=== PATIENT | female | born 1945 | race Caucasian/White ===

== ENCOUNTER → 2023-11-22 12:24 | Outpatient (REF) | payer OTHER, SELFPAY | LOC: HWRAD 12:24 | PROVIDERS: ATTENDING PHYSICIAN Physician Assistant Medical | DX: M25.562 Pain in left knee (principal) | CPT/HCPCS: 73564 ==

== ENCOUNTER → 2023-12-26 09:05 | Outpatient (REF) | payer OTHER, SELFPAY | LOC: RCS 09:05 | PROVIDERS: ATTENDING PHYSICIAN Physician Assistant Medical | DX: R00.2 Palpitations (principal) | CPT/HCPCS: 93225; 93226 ==

== ENCOUNTER → 2024-01-04 14:42 | Outpatient (REF) | payer OTHER, SELFPAY | LOC: RCS 14:42 | PROVIDERS: ATTENDING PHYSICIAN Internal Medicine; FAMILY PHYSICIAN Physician Assistant Medical | DX: R94.31 Abnormal electrocardiogram [ECG] [EKG] (principal); R06.09 Other forms of dyspnea; R00.2 Palpitations; I49.3 Ventricular premature depolarization | CPT/HCPCS: 93017 ==

== ENCOUNTER → 2024-01-19 13:48 | Outpatient (REF) | payer OTHER, SELFPAY | LOC: HWRCS 13:48 | PROVIDERS: ATTENDING PHYSICIAN Internal Medicine; FAMILY PHYSICIAN Physician Assistant Medical | DX: R00.2 Palpitations (principal); I49.3 Ventricular premature depolarization; R06.09 Other forms of dyspnea; R94.31 Abnormal electrocardiogram [ECG] [EKG] | CPT/HCPCS: 93306 ==

== ENCOUNTER → 2024-01-24 10:56 | Outpatient (REF) | payer OTHER, SELFPAY | LOC: DHCBC/DCA 10:56 | PROVIDERS: ATTENDING PHYSICIAN Internal Medicine; FAMILY PHYSICIAN Physician Assistant Medical | DX: R00.2 Palpitations (principal); R06.09 Other forms of dyspnea; R94.39 Abnormal result of other cardiovascular function study; I48.0 Paroxysmal atrial fibrillation | CPT/HCPCS: 78452; 93017; A9500; J2785 ==

== ENCOUNTER 2024-02-23 05:58 | Day surgery (SDC) | payer OTHER, SELFPAY ==
[2024-02-08 13:09] VITALS: BMI 18.8
[2024-02-08 13:43] LABS: % Basophils 0.7 % (0-2); % Eosinophils 1.6 % (0-6); % Immature Granulocytes 0.1 % (0-0.5); % Lymphocytes 32.3 % (20.5-51.1); % Monocytes 6.8 % (1.7-9.3); % Neutrophils 58.5 % (42.2-75.2); Absolute Basophils 0.1 10^3/uL (0-0.2); Absolute Eosinophils 0.1 10^3/uL (0-0.7); Absolute Lymphocytes 2.2 10^3/uL (1.2-3.4); Absolute Monocytes 0.5 10^3/uL (0.1-0.6); Absolute Neutrophils 3.9 10^3/uL (1.4-6.5); Hematocrit 38.8 % (37.0-47.0); Hemoglobin 13.7 g/dL (12.0-16.0); Mean Corp Hgb Conc. 35.3 g/dL (33.0-37.0); Mean Corpuscular Hgb 31.8 pg (27.0-31.0); Mean Platelet Volume 11.3 fL (7.4-10.4); Nucleated Red Blood Cells % 0 %; Platelet Count 212 10^3/uL (130-400); Red Blood Cell Count 4.31 10^6/uL (4.20-5.40); Red Cell Dist. Width 12.7 % (11.5-14.5); White Blood Cell Count 6.7 10^3/uL (4.8-10.8)
[2024-02-08 13:58] LABS: ALT (SGPT) 19 U/L (0-35); AST (SGOT) 25 U/L (14-36); Alkaline Phosphatase 75 U/L (38-126); Blood Urea Nitrogen 23 mg/dl (7-17); Calcium 9.8 mg/dl (8.4-10.2); Carbon Dioxide 27 mmol/L (22-30); Chloride 105 mmol/L (98-107); Estimated Creatinine Clearance 52 ml/min; Glucose 141 mg/dl (70-99); Potassium 3.4 mmol/L (3.5-5.1); Sodium 139 mmol/L (135-145); Total Bilirubin 0.5 mg/dl (0.2-1.3); Total Protein 6.8 g/dl (6.3-8.2); eGFR > 60.00
[2024-02-23] VITALS (19 sets, daily range): BP systolic 100–185; BP diastolic 38–92; BMI 18.8
[2024-02-23 09:11] LABS: ACT-LR - POC 388 Seconds (116-155)
--- NOTE | 2024-02-23 09:50 | ITS.CL.ABL ---
Pathologist Assistant - Ablation
Ablation
Procedure Report:
AFIB ablation:
Ms. Guzman is a very pleasant 78 yr old woman with symptomatic paroxysmal AF presented today to the EP lab for atrial fibrillation ablation.
Date of the Procedure:
02/23/2024
Indications:
Paroxysmal atrial fibrillation
Pre-Operative Diagnosis:
Paroxysmal atrial fibrillation
Post-Operative Diagnosis:
Paroxysmal atrial fibrillation
Procedure Performed:
Atrial fibrillation ablation with Pulsed-Field approach for pulmonary vein isolation
Performing Physician:
Nara Sharpe MD
Assistants:
EP staff
Anesthesia:
See anesthesia records
Detailed Description of the Procedure:
Written informed consent was obtained from the patient after a full explanation of the risks and benefits of the procedure including the risks of sedation and anesthesia.
The patient was brought to the electrophysiology laboratory in stable condition in fasting state. Continuous electrocardiographic and hemodynamic monitoring was initiated.
The initial rhythm was sinus bradycardia.
The procedure site was meticulously prepared with surgical scrub and allowed to dry with no pooling. Sterile draping was applied to cover the procedure site. The image intensifier was draped with sterile bag and positioned over the patient. After
infusion of local anesthetic, vascular access was obtained under ultrasound guidance and sheaths were placed over guide wire as detailed below.
Sheath and Catheter Placement:
The following catheters / sheaths were placed
Sheaths:
��������� 15Fr steerable sheath (FlexCath Cross�, tribalXtronic) in right femoral vein in right femoral vein
��������� 9Fr in right femoral vein
��������� 7Fr in right femoral vein
Catheters:
��������� [place] HD Grid mapping catheter � at locations of RA, LA
��������� PulseSelect� PFA catheter
��������� ICE catheter -AcuNav - at locations of RA, SVC, and RV.
��������� Decapolar Bard catheter in RA and CS
Intracardiac ECHO:
An 8-Barbadian AcuNav intracardiac ECHO (ICE) probe was advanced through the 9-Barbadian sheath in the right femoral vein into the right atrium under fluoroscopic and ICE ultrasound image guidance and a baseline ECHO study was performed. The left atrial
size was mildly dilated. There was moderate tricuspid regurgitation. The aortic valve was grossly normal. There was normal left ventricular systolic functions. There is small pericardial effusion. All the four veins were identified and has flow
identified.
During the procedure, ICE was used for monitoring of complications, guidance of trans-septal puncture, monitor the catheter position and tracking ablation lesions. No change in the pericardial space noted throughout the procedure.
Trans-septal Puncture:
Heparin was initiated and infused to maintain appropriate ACT. A J-tipped guidewire was advanced through the 8-Barbadian sheath in the right femoral vein into the superior vena cava under fluoroscopic and ICE guidance. The 8-Barbadian sheath was exchanged
for a FlexCath Cross sheath which was advanced into the superior vena cava. An [employer] transseptal access system was utilized to perform the trans-septal puncture. The apparatus was withdrawn until it was in contact with the fossa ovalis. The
position was adjusted based on fluoroscopy and ultrasound images from ICE. Under fluoroscopic, hemodynamic and ICE ultrasound guidance, left atrium was cannulated by advancing the needle. Once atrial septum was cannulated, the needle was pulled back
and a guide wire was advanced through the needle into the left atrium. The guide wire was advanced into the left superior pulmonary vein. Both the sheath and the dilator was advanced into the left atrium. The dilator with the needle was withdrawn.
Blood was aspirated from the FlexCath cross sheath and arterial blood confirmed. The sheath was flushed. Saline injection noted into the left atrium on ICE. The mapping catheter was advanced in the Agilis sheath into the left pulmonary vein. Left
atrial pressure was measured.
3D Electroanatomic Mapping:
Using the HD Grid catheter advanced through sheath into the left atrium, an electroanatomic map (EAM) of the left atrium was created using [employer] mapping system. The map was used for localization of catheter position and tacking of ablation
lesions. The EAM of the left atrium showed 4 pulmonary veins with two left sided and two right sided veins electrically connected to the body the LA. The EAM showed no significant scar in the left atrium.
The LA was normal in size.
Following the EAM, preparation were made for ablation.
Ablation:
Ablation # 1: Pulmonary vein Isolation:
Using [employer]� pulsed field ablation system, pulmonary vein isolation was acieved. First the ablation catheter was placed in the LSPV and ostial ablation lesions were performed in a counter clock khanna approach all around the PV ostium
circumferentially. Then the catheter was placed on the antral location and multiple ablation lesions were placed circumferentially on the antrum of the vein.
In the similar fashion, the LIPV were isolated.
Then the catheter was moved to right sided veins. The phrenic nerve was paced before and after the ablation on the right sided vein pedro the anterior ablations.
The ostial and antral ablations were placed as noted above.
Post ablation Electroanatomic mapping:
Once the sinus rhythm achieved, the LA was mapped with HD grid in detail.
The posterior wall was also isolated with no signals present in the posterior wall.
EPS and Confirmation of the PVI and bidirectional block:
Following achievement of entrance block at the pulmonary veins, pacing from the HD catheter in each of the four veins at 10 milliamps for 2 milliseconds showed entrance and exit block. All PVI were rechecked at the end of the case and remained
isolated with dissociated and local capture with pacing. Entrance and exit block were demonstrated in all veins.
Procedure End
ICE study was done again that showed no epicardial accumulation. No complications noted.
Following the completion of the EP study, catheters were removed. Protamine 30 mg was given at the end of the procedure and ACT was checked repeatedly. The sheaths were removed and hemostasis achieved with manual compression after acceptable ACT is
achieved.
Left atrial Pressure:
Pre-Mean LA pressure was 12mmHg
Post mean LA pressure was 8 mmHg
Post mean RA pressure was 3 mmHg
Estimated Blood loss:
<10 cc
Specimens Removed:
None.
Implants / Devices:
None
Urine output:
None
Packs / Drains/ Tubes:
None
Instrument / Sponge Count Correct:
Yes
Complications of the Procedure:
None
Condition of Patient at Time of Transfer:
Hemodynamically stable with no neurological or vascular compromise.
Summary:
Successful atrial fibrillation ablation with Pulsed Field approach for pulmonary vein isolation
Figures from the Procedure:
Figure 1: The electroanatomic mapping (EAM) of the left atrium with bipolar voltage (purple indicates normal electrical activity with montalvo as no myocardial muscle electric activity indicating a line of block or scar.
[2024-02-23] MEDS: ANESTHETIC LOZENGE 1 LOZENGE PO (11:29)
--- NOTE | 2024-02-23 14:34 | W.PN.UPDATE ---
Update Note
Progress Note Update
Pt seen post PVI. RFV site without ht/bleeding, non tender. OOB ambulating. Post EKG SB 50s, no acute changes. Resume eliquis today and continue other meds as before. Followup at [facility] as scheduled. Home later today if groin site/tele remain stable.
[2024-02-23 15:36] LABS: ACT-LR - POC > 397 Seconds (116-155)
[2024-02-23 15:36] LABS: ACT-LR - POC > 397 Seconds (116-155)
== END 2024-02-23 14:30 | disposition home or self-care (01) ==
LOC: CATH 05:58
PROVIDERS: ATTENDING PHYSICIAN Internal Medicine Cardiovascular Disease; FAMILY PHYSICIAN Physician Assistant Medical; OTHER PHYSICIAN Internal Medicine
DX: I48.0 Paroxysmal atrial fibrillation (principal); I10 Essential (primary) hypertension; I08.0 Rheumatic disorders of both mitral and aortic valves; F17.210 Nicotine dependence, cigarettes, uncomplicated; Z79.01 Long term (current) use of anticoagulants; Z79.899 Other long term (current) drug therapy; Z79.890 Hormone replacement therapy
CPT/HCPCS: C1732; C1769; C1894; C1730; C1733; C1759; C1892; C1766; 36415; 76937; 80053; 85025; 85347; 86850; 86900; 86901; 93005; 93656